=== PATIENT | male | born 1955 | race Caucasian/White ===

== ENCOUNTER → 2016-06-06 | Outpatient (CLI) | payer OTHER ==
[~2016-06-06] MED LIST: CLON0.5T3 PO; CYAN10005 PO; QVAR INH; TRANYLCYPROMINE 10 MG PO; [UNRECOGNIZED DRUG - CODE] INJ; [UNRECOGNIZED DRUG - CODE] PO
--- NOTE | 2016-06-06 14:48 | DIAGNOSTIC IMAGING REPORT ---
RIGHT FOOT MIN 3 VIEWS ROUTINE CLINICAL HISTORY: ACUTE FOOT PAIN Right pain COMPARISON: None. DISCUSSION: The bones and joint spaces appear intact. There is no evidence of fracture, dislocation or bony disease. There is no evidence for soft tissue swelling. Degenerative sclerosis distal aspect first metatarsal. Mild pars planus configuration. IMPRESSION: Degenerative change first metatarsophalangeal joint. No acute bony abnormality. Electronically signed by: Sung Baptiste M.D. 06/06/2016 2:46 PM Dictated Date/Time: 06/06/2016 2:45 PM
[2016-06-06 17:41] LABS: HEMATOCRIT 37.4 % (42-52); MEAN CELL VOLUME 88.6 fL (80-100); MEAN CORPUSCULAR HEMOGLOBIN 29.1 pg (25-34); MEAN CORPUSCULAR HGB CONC 32.9 g/dl (32-36); MEAN PLATELET VOLUME 11.5 fL (7.4-10.4); PLATELET COUNT 128 K/uL (130-400); RED BLOOD COUNT 4.22 M/uL (4.7-6.1); WHITE BLOOD COUNT 3.93 K/uL (4.8-10.8)
[2016-06-06 18:12] LABS: BASO % 0.3 %; BASO ABS # 0.01 K/uL (0-0.2); COMPLETE YES; EOS % 0.8 %; IG% 0.5 %; LYMPH % 52.2 %; LYMPH ABS # 2.05 K/uL (1.2-3.4); MONO % 14.5 %; NEUT % 31.7 %
== END | disposition home or self-care (01) ==
LOC: C.RADPV 14:26
PROVIDERS: ATTEND Nurse Practitioner
DX: M79.671 Pain in right foot (principal)

== ENCOUNTER → 2017-01-02 | Outpatient (CLI) | payer OTHER ==
--- NOTE | 2017-01-02 12:26 | DIAGNOSTIC IMAGING REPORT ---
LEFT KNEE 2 VIEWS HISTORY: Left knee pain COMPARISON: None. FINDINGS: There is no fracture or dislocation. No soft tissue swelling. Moderate knee effusion. Mild cartilage space narrowing within the medial compartment of the knee. IMPRESSION: Moderate knee effusion. No fractures. Electronically signed by: Michel Banguar M.D. 01/02/2017 12:25 PM Dictated Date/Time: 01/02/2017 12:24 PM
== END | disposition home or self-care (01) ==
LOC: C.RADPV 11:47
PROVIDERS: ATTEND Family Medicine Adult Medicine
DX: M25.562 Pain in left knee (principal)

== ENCOUNTER → 2017-01-28 | Outpatient (CLI) | payer OTHER ==
[2017-01-28 13:36] LABS: THYROID STIMULATING HORMONE 6.44 uIu/ml (0.300-4.500); URIC ACID 4.3 mg/dl (2.6-7.2)
== END | disposition home or self-care (01) ==
LOC: C.LABPVFM 10:43
PROVIDERS: ATTEND Family Medicine Adult Medicine
DX: M25.562 Pain in left knee (principal)

== ENCOUNTER → 2017-03-23 | Outpatient (CLI) | payer OTHER | END | disposition home or self-care (01) | LOC: C.LABPVFM 14:17 | PROVIDERS: ATTEND Family Medicine | DX: E03.9 Hypothyroidism, unspecified (principal) ==